=== PATIENT | male | born 1950 | race Caucasian/White ===

== ENCOUNTER → 2016-08-23 | Outpatient (CLI) | payer MEDICARE, OTHER | LOC: LAB.O 14:28 | PROVIDERS: ATTEND Family Medicine | DX: R53.82 Chronic fatigue, unspecified (principal); D51.3 Other dietary vitamin B12 deficiency anemia; E54 Ascorbic acid deficiency; E55.9 Vitamin D deficiency, unspecified ==

== ENCOUNTER → 2017-01-05 | Outpatient (CLI) | payer MEDICARE, OTHER | END | disposition home or self-care (01) | LOC: GMAL 14:32 | PROVIDERS: ATTEND Family Medicine | DX: Z12.5 Encounter for screening for malignant neoplasm of prostate (principal) ==

== ENCOUNTER → 2017-01-13 | Outpatient (CLI) | payer MEDICARE, OTHER ==
--- NOTE | 2017-01-15 10:15 | MRI ---
MRI right shoulder without contrast INDICATION: Shoulder pain no specific injury initial encounter TECHNIQUE: Noncontrast MR imaging right shoulder standard protocol FINDINGS: Mild AC joint osteoarthrosis. Mild glenohumeral osteoarthrosis with diffuse labral degeneration. Moderate subacromial and subdeltoid bursitis. Tendinosis with low-grade interstitial partial tears of the supraspinatus and infraspinatus near the insertions without detachment or retraction. Mild grade 1 marbling throughout the rotator cuff with the exception of the upper subscapularis which demonstrates grade 4 fatty and volumetric atrophy. The subscapularis demonstrates an effectively full-thickness detachment on the axial images with medial interstitial subluxation/dislocation of the long head bicep and high-grade interstitial partial tear of the intracapsular and extracapsular bicep tendon. IMPRESSION: Essentially full-thickness detachment of the subscapularis with up to grade 4 muscle atrophy in the upper aspect of the muscle belly Medial bicep dislocation with diffuse interstitial high-grade partial tear Tendinosis and low-grade partial tears of the supraspinatus and infraspinatus Subacromial and subdeltoid bursitis Mild AC joint osteoarthrosis Mild glenohumeral osteoarthrosis with diffuse labral degeneration. Electronically signed by: Theo Richardson MD 01/15/2017 10:14 AM CDT Workstation: [id number]
== END | disposition home or self-care (01) ==
LOC: MRI 09:01
PROVIDERS: ATTEND Family Medicine
DX: M25.511 Pain in right shoulder (principal)

== ENCOUNTER → 2018-05-14 | Outpatient (CLI) | payer MEDICARE, OTHER | LOC: SL 19:28 | PROVIDERS: ATTEND Family Medicine | DX: G47.10 Hypersomnia, unspecified (principal); G47.00 Insomnia, unspecified; R06.83 Snoring; R51 Headache ==

== ENCOUNTER → 2018-05-30 | Outpatient (CLI) | payer MEDICARE, OTHER | LOC: GMAL 12:44 | PROVIDERS: ATTEND Family Medicine | DX: E53.8 Deficiency of other specified B group vitamins (principal); Z12.5 Encounter for screening for malignant neoplasm of prostate; R53.83 Other fatigue; E55.9 Vitamin D deficiency, unspecified | CPT/HCPCS: 82306; 82607; 84443; G0103 ==

== ENCOUNTER → 2019-07-03 | Outpatient (CLI) | payer MEDICARE, OTHER | LOC: GMAHI 16:46 | PROVIDERS: ATTEND Nurse Practitioner Family | DX: R12 Heartburn (principal) ==

== ENCOUNTER → 2019-07-11 | Outpatient (CLI) | payer MEDICARE, OTHER | LOC: GMAL 14:45 | PROVIDERS: ATTEND Family Medicine | DX: M79.674 Pain in right toe(s) (principal) ==

== ENCOUNTER → 2019-12-12 | Outpatient (CLI) | payer MEDICARE, OTHER | LOC: GMAL 11:29 | PROVIDERS: ATTEND Family Medicine | DX: M10.9 Gout, unspecified (principal); Z12.5 Encounter for screening for malignant neoplasm of prostate; E11.9 Type 2 diabetes mellitus without complications; E78.49 Other hyperlipidemia; Z79.899 Other long term (current) drug therapy | CPT/HCPCS: 84550; G0103 ==

== ENCOUNTER → 2020-06-16 | Outpatient (CLI) | payer MEDICARE, OTHER | LOC: GMAL 11:52 | PROVIDERS: ATTEND Family Medicine | DX: R53.82 Chronic fatigue, unspecified (principal); I10 Essential (primary) hypertension; E11.9 Type 2 diabetes mellitus without complications; E78.49 Other hyperlipidemia ==